=== PATIENT | female | born 1985 | race Asian ===

== ENCOUNTER 2017-10-13 16:51 | Emergency (ER) | payer OTHER ==
[~2017-10-13] VITALS: Ht 162.6 cm; Wt 70.0 kg
[2017-10-13] MEDS ORDERED: KETOROLAC TROMETHAMINE 10 MG TABLET PO ONE (18:15)
[2017-10-13 18:28] VITALS: BP 134/74
== END 2017-10-13 18:53 | disposition home or self-care (01) ==
LOC: EMS 16:53
DX: M79.631 Pain in right forearm (principal); M79.89 Other specified soft tissue disorders
CPT/HCPCS: 99283

== ENCOUNTER 2025-01-10 08:13 | Day surgery (SDC) | payer OTHER ==
[~2025-01-10] VITALS: Ht 162.6 cm; Wt 72.7 kg
[~2025-01-10 08:13] MED LIST: FERR-72 PO; IMAT100T PO; PROPOFOL 1% ISO-OSM 1000 MG/100 ML BOTTLE ONE; SODIUM CHLORIDE 0.9% 1,000 ML ONE
[2025-01-10] MEDS: SODIUM CHLORIDE 0.9% 1,000 ML IV ONE (09:12)
[2025-01-10] MEDS ORDERED: OXYGEN THERAPY IH SCH (20:00)
== END 2025-01-10 11:15 | disposition home or self-care (01) ==
LOC: SURGERY 08:13
PROVIDERS: ATTEND Specialist
DX: R10.31 Right lower quadrant pain (principal); K63.5 Polyp of colon; K21.9 Gastro-esophageal reflux disease without esophagitis; K22.70 Barrett's esophagus without dysplasia; C92.10 Chronic myeloid leukemia, BCR/ABL-positive, not having achieved remission; I10 Essential (primary) hypertension
CPT/HCPCS: 45385; 43239; 88305; 84703; C1769; J2704; J7030

== ENCOUNTER → 2025-05-17 | Outpatient (CLI) | payer OTHER ==
[~2025-05-17] MED LIST changes: -PROPOFOL 1% ISO-OSM 1000 MG/100 ML BOTTLE ONE; -SODIUM CHLORIDE 0.9% 1,000 ML ONE
[2025-05-17 08:58] LABS: PLATELET COUNT (AUTO) 359 K/uL (150-450); RED BLOOD CELL COUNT(AUTO) 4.68 MIL/uL (4.00-5.20); RED CELL DISTRIBUTION WIDTH 12.8 % (11.5-14.5); WHITE BLOOD COUNT (AUTO) 9.4 K/uL (4.5-11.0)
[2025-05-17 09:25] LABS: ERYTHROCYTE SEDIMENTATION RATE 32 MM/HR (0-20)
[2025-05-17 09:39] LABS: ASPARTATE AMINOTRANSFERASE 12 U/L (15-37); C-REACTIVE PROTEIN QUANT 0.51 mg/dL (0.00-0.30); CALCIUM, TOTAL 8.6 mg/dL (8.8-10.5); CREATININE 0.49 mg/dL (0.60-1.30); GLOMERULAR FILTR. RATE CALC > 60 mL/min (>60); GLUCOSE,RANDOM 93 mg/dL (70-110); SODIUM SERUM 138 mmol/L (136-145); TOTAL PROTEIN, SERUM 7.3 g/dL (6.4-8.2); UREA NITROGEN, BLOOD 10 mg/dL (7-18)
[2025-05-17 09:40] LABS: % IRON SATURATION 31.9 % (22-44); IRON, SERUM 98 mcg/dL (50-175)
[2025-05-17 09:53] LABS: FOLATE SERUM 15.7 ng/mL (5.4-); VITAMIN B12 LEVEL 904.0 pg/mL (211-911)
[2025-05-17 09:57] LABS: CHOL/HDL RATIO 3.0 (3.9-5.7); LDL CHOL (CALC.) 105 mg/dL (0-130)
[2025-05-21 08:01] LABS: ALBUMIN/CREATININE RATIO 10.0 mg/g creat (0-29); CREATININE, URINE (mALB) 91.0 mg/dL (Not Estab.)
== END | disposition home or self-care (01) ==
LOC: LABMN 08:23
PROVIDERS: ATTEND Internal Medicine Geriatric Medicine
DX: Z00.00 Encounter for general adult medical examination without abnormal findings (principal)
CPT/HCPCS: 80053; 80061; 82043; 82570; 82607; 82728; 82746; 83036; 83540; 83550; 84443; 84550; 85025; 85651; 86140